=== PATIENT | female | born 1965 | race Hispanic/Latino ===

== ENCOUNTER 2021-08-04 05:00 | Inpatient (IN) | payer OTHER ==
[2021-08-01 09:05] LABS: BASOPHILS # (AUTO) 0.1 (0.0-0.1); BASOPHILS % 1.2 % (0.0-1.0); EOSINOPHILS # (AUTO) 0.3 (0.0-0.4); EOSINOPHILS % 4.3 % (0.0-6.0); HEMATOCRIT 44.2 % (34.2-44.1); HEMOGLOBIN 14.4 g/dL (12.0-16.0); LYMPHOCYTES # (AUTO) 3.1 (1.0-3.2); LYMPHOCYTES % 45.9 % (18.0-39.1); MEAN CORPUSCULAR HEMOGLOBIN 29.7 pg (28-32); MEAN CORPUSCULAR HGB CONC 32.6 g/dL (31-35); MEAN CORPUSCULAR VOLUME 91.1 fL (81-99); MONOCYTES # (AUTO) 0.7 (0.2-0.8); MONOCYTES % 9.7 % (4.4-11.3); NEUTROPHILS # (AUTO) 2.6 (2.1-6.9); NEUTROPHILS % 38.8 % (38.7-80.0); PLATELET COUNT 329 x10e3/uL (140-360); RED BLOOD COUNT 4.85 x10e6/uL (3.6-5.1); RED CELL DISTRIBUTION WIDTH 12.4 % (11.7-14.4)
[~2021-08-04] VITALS: Ht 160 cm; Wt 105.7 kg
[2021-08-04] MEDS ORDERED: SODIUM CHLORIDE 0.9% 50ML 100 ML ONE (05:51)
[2021-08-04] MEDS ORDERED: BUPIVACAINE 0.25% 30ML SDV ONE (06:50)
[2021-08-04] MEDS ORDERED: ACETAMINOPHEN 1000 MG/100 ML 100 ML IV ONE (10:06)
[2021-08-04] MEDS ORDERED: ONDANSETRON HCL INJ 2MG/ML 2ML 2 MG/ML VIAL ONE ×2 (10:41→13:09)
[2021-08-04] MEDS ORDERED: MEPERIDINE HCL INJ 25 MG/ML VIAL ONE (10:41)
[2021-08-04] MEDS ORDERED: HYDROMORPHONE 1MG/1ML INJ ONE ×2 (10:42→11:11)
[2021-08-04] MEDS ORDERED: LABETALOL HCL 20 ML ONE (11:21)
[2021-08-04] MEDS ORDERED: ROCURONIUM BROMIDE 10 MG/ML 5ML VIAL IV ONE (13:09)
[2021-08-04] MEDS ORDERED: GLYCOPYRROLATE INJ 0.2 MG/ML VIAL ONE (13:09)
[2021-08-04] MEDS ORDERED: SEVOFLURANE INHAL SOLN 250 ML PEN BTL ONE (13:09)
[2021-08-04] MEDS ORDERED: DEXAMETHASONE SOD PHOS INJ 4 MG/ML SDV ONE (13:09)
[2021-08-04] MEDS ORDERED: PROPOFOL IV EMULSION 10 MG/ML 20 ML VIAL ONE (13:09)
[2021-08-04] MEDS ORDERED: NEOSTIGMINE 1 MG/ML 10ML VIAL ONE (13:09)
[2021-08-04] MEDS ORDERED: EPHEDRINE SULFATE INJ 50 MG/ML VIAL ONE (13:09)
[2021-08-04] MEDS ORDERED: POVIDONE IODINE 0.05% 0.05 % ML PO ONE (13:09)
[2021-08-04] MEDS ORDERED: LIDOCAINE HCL 2% LOCAL INJ 5 ML SDV VIAL INJ ONE (13:09)
[2021-08-04] MEDS ORDERED: ONDANSETRON HCL INJ 2MG/ML 2ML 2 MG/ML VIAL IV PRN (13:30)
[2021-08-04 13:40] VITALS: BP 138/85
[2021-08-04 13:42] VITALS: BP 138/85
[2021-08-04] MEDS: LACTATED RINGER'S 1,000 ML INJ SCH ×2 (14:20→21:13)
[2021-08-04] MEDS: MORPHINE SULFATE INJ 2 MG/ML SYR IV PRN ×2 (14:20→21:41)
[2021-08-04] MEDS ORDERED: SCOPOLAMINE 1.5 MG PATCH TOP ONE (14:30)
[2021-08-04 16:05] VITALS: BP 129/82
[2021-08-04 20:00] VITALS: BP 156/92
[2021-08-04] MEDS: ENOXAPARIN SOD INJ 40 MG/0.4 ML SYR SC SCH (20:00)
[2021-08-04 20:34] VITALS: BP 129/82
[2021-08-05] VITALS: BP 122/61
[2021-08-05] MEDS: HYDROCODONE/APAP 7.5MG-325MG 1 EA TAB PO PRN ×2 (02:35→07:55)
[2021-08-05 04:00] VITALS: BP 129/77
[2021-08-05] MEDS: LACTATED RINGER'S 1,000 ML INJ SCH (04:59)
[2021-08-05 06:02] LABS: BASOPHILS % 0.3 % (0.0-1.0); EOSINOPHILS % 0.1 % (0.0-6.0); HEMOGLOBIN 13.1 g/dL (12.0-16.0); LYMPHOCYTES # (AUTO) 3.1 (1.0-3.2); LYMPHOCYTES % 26.2 % (18.0-39.1); MEAN CORPUSCULAR HEMOGLOBIN 30.3 pg (28-32); MEAN CORPUSCULAR HGB CONC 33.6 g/dL (31-35); MEAN CORPUSCULAR VOLUME 90.3 fL (81-99); MONOCYTES # (AUTO) 1.2 (0.2-0.8); MONOCYTES % 10.3 % (4.4-11.3); NEUTROPHILS # (AUTO) 7.4 (2.1-6.9); NEUTROPHILS % 62.8 % (38.7-80.0); PLATELET COUNT 320 x10e3/uL (140-360); RED BLOOD COUNT 4.32 x10e6/uL (3.6-5.1); RED CELL DISTRIBUTION WIDTH 12.4 % (11.7-14.4)
[2021-08-05 06:31] LABS: ALBUMIN 3.7 g/dL (3.5-5.0); ALBUMIN/GLOBULIN RATIO 1.2 (0.8-2.0); ANION GAP 14.5 mmol/L (8-16); CALCIUM 8.5 mg/dL (8.4-10.2); CREATININE, SERUM 0.69 mg/dL (0.57-1.11); MAGNESIUM 1.7 MG/DL (1.3-2.1); PHOSPHORUS 2.6 MG/DL (2.3-4.7); POTASSIUM 4.5 mmol/L (3.5-5.1)
[2021-08-05] MEDS: ENOXAPARIN SOD INJ 40 MG/0.4 ML SYR SC SCH (07:55)
[2021-08-05 08:03] VITALS: BP 141/97
[2021-08-05 08:28] VITALS: BP 141/97
[2021-08-05 11:06] VITALS: BP 126/67
== END 2021-08-05 11:25 | disposition home or self-care (01) | DRG 621 ==
LOC: OR 05:00 → PACU V 10:32 → MED/SURG3 13:15
PROVIDERS: ADMIT Internal Medicine; ATTEND Internal Medicine
PROC: 0D164ZA Bypass Stomach to Jejunum, Percutaneous Endoscopic Approach (ICD-10-PCS; principal; 2021-08-04 07:30)
PROC: 0BQT4ZZ Repair Diaphragm, Percutaneous Endoscopic Approach (ICD-10-PCS; 2021-08-04 07:30)
DX: E66.01 Morbid (severe) obesity due to excess calories (principal); Z68.41 Body mass index [BMI] 40.0-44.9, adult; G47.33 Obstructive sleep apnea (adult) (pediatric); K76.0 Fatty (change of) liver, not elsewhere classified; K21.9 Gastro-esophageal reflux disease without esophagitis; K44.9 Diaphragmatic hernia without obstruction or gangrene; Z80.8 Family history of malignant neoplasm of other organs or systems; Z82.3 Family history of stroke; Z20.822 Contact with and (suspected) exposure to COVID-19
CPT/HCPCS: 36415; 80053; 83735; 84100; 85025; 93005; J0690; J1100; J1170; J1650; J2001; J2175; J2270; J2405; J2710; J7121; U0002